=== PATIENT | male | born 1950 | race Caucasian/White ===

== ENCOUNTER 2019-12-26 06:29 | Day surgery (SDC) | payer MEDICARE ==
[~2019-12-26] VITALS: Ht 180.3 cm; Wt 86.8 kg
[~2019-12-26 06:29] MED LIST: SODIUM CHLORIDE 0.9% 1,000 ML ONE
[2019-12-26] MEDS ORDERED: LIDOCAINE 4% 50 ML SOLUTION TP ONE (06:30)
[2019-12-26] MEDS ORDERED: BENZOCAINE 20% 50 MCG/SPRAY 57 GM TP ONE (06:30)
[2019-12-26] MEDS ORDERED: SODIUM CHLORIDE 0.9% 1,000 ML IV ONE (06:30)
[2019-12-26] MEDS ORDERED: ALBUTEROL SULFATE 2.5 MG/0.5 ML NEB SOLUTION NEB ONE (06:30)
[2019-12-26] MEDS ORDERED: LIDOCAINE 2% 30 ML JELLY TP ONE (06:30)
[2019-12-26] MEDS ORDERED: LISI-661 PO (06:57)
[2019-12-26] MEDS ORDERED: MONT10TA21 PO (06:57)
[2019-12-26] MEDS ORDERED: TAMS-13 PO (06:57)
[2019-12-26] MEDS ORDERED: MIDAZOLAM HCL 2 MG/2 ML VIAL ONE (07:29)
[2019-12-26] MEDS ORDERED: FentaNYL CITRATE-PF 100 MCG/2 ML VIAL ONE (07:29)
[2019-12-26] MEDS ORDERED: MethylPREDNISolone SOD SUCC 125 MG/2 ML VIAL ONE (08:27)
[2019-12-26] MEDS ORDERED: MethylPREDNISolone SOD SUCC 125 MG/2 ML VIAL IVP ONE (09:15)
[2019-12-26] MEDS ORDERED: OXYGEN THERAPY IH SCH (20:00)
== END 2019-12-26 10:35 | disposition home or self-care (01) ==
LOC: SURGERY 06:29
PROVIDERS: ATTEND Internal Medicine Critical Care Medicine
DX: R05 Cough (principal); R04.2 Hemoptysis; R59.1 Generalized enlarged lymph nodes; J98.4 Other disorders of lung; J34.89 Other specified disorders of nose and nasal sinuses; J38.4 Edema of larynx; B37.0 Candidal stomatitis; J98.8 Other specified respiratory disorders; I10 Essential (primary) hypertension; Z79.899 Other long term (current) drug therapy
CPT/HCPCS: 31623; 31624; 71045; 87070 ×2; 87101; 87206; 87220; 87252 ×2; 88184; 88185; J2250; J2930; J3010; J7030; 87015; 87205; 88108; 88312